=== PATIENT | female | born 1970 | race Caucasian/White ===

== ENCOUNTER 2023-11-26 03:45 | Outpatient (CLI) | payer OTHER, SELFPAY | END 2023-11-26 03:46 | disposition home or self-care (01) | LOC: AMB 11-28 16:30 | PROVIDERS: Visit Provider Family Medicine | DX: S49.92XA Unspecified injury of left shoulder and upper arm, initial encounter (principal); S39.92XA Unspecified injury of lower back, initial encounter; V47.0XXA Car driver injured in collision with fixed or stationary object in nontraffic accident, initial encounter; Y92.410 Unspecified street and highway as the place of occurrence of the external cause | CPT/HCPCS: A0425; A0429 ==

== ENCOUNTER 2023-11-26 14:11 | Emergency (ER) | payer OTHER, SELFPAY ==
[2023-11-26 14:19] VITALS: BP 149/79; PULSE 74; RESP 16; O2SAT 96; BMI 47.3
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
[2023-11-26] MEDS: KETOROLAC 15 MG/ML inj IVP (14:45)
[2023-11-26 15:06] LABS: Creatinine, Point-of-Care* 0.5 mg/dl (0.6-1.3)
[2023-11-26 15:16] VITALS: TEMP 36.1
[2023-11-26] MEDS: ONDANSETRON 2 MG/ML inj 4 MG IVP (16:34)
[2023-11-26] MEDS: HYDROmorphone 0.5 mg/0.5 ml inj IVP (16:34)
[2023-11-26 17:00] VITALS: BP 134/80; RESP 18; O2SAT 97
== END 2023-11-26 17:10 | disposition home or self-care (01) ==
PROVIDERS: Emergency Provider Emergency Medicine
DX: S10.91XA Abrasion of unspecified part of neck, initial encounter (principal); S39.92XA Unspecified injury of lower back, initial encounter; V49.88XA Car occupant (driver) (passenger) injured in other specified transport accidents, initial encounter
CPT/HCPCS: 70450; 70498; 72125; 74177; 82565; 93005; 96374; 96375; 99284; 99285; J1170; J1885; J2405; Q9967